=== PATIENT | female | born 1980 | race Caucasian/White ===

== ENCOUNTER 2016-07-02 05:56 | Inpatient (IN) | payer BC ==
[2016-07-02] VITALS (19 sets, daily range): BP systolic 107–152; BP diastolic 70–96; PULSE 61–84; TEMP 97.6–98.3
[~2016-07-02] VITALS: Ht 160 cm; Wt 80.9 kg
[~2016-07-02 05:56] MED LIST: ASCRIPTIN1 TAB PO; COUMADIN5 MG PO; FAMILY PHARMAC0.4 MG PO; IBU600 MG PO; PERCOCET 325 MG1 TA2; PREDNISONE10 MG; PRENATAL VITAMI1 TAB PO; SENOKOT S 50 MG1 TAB PO
[2016-07-02 06:46] LABS: BASO % 0.3 % (0.0-2.0); EOS # 0.3 (0.0-0.7); EOS % 3.1 % (0-4.0); GRAN # 8.4 (1.4-6.5); GRAN % 76.3 % (42.2-75.2); HEMATOCRIT 37.4 % (37.0-47.0); HEMOGLOBIN 12.9 g/dl (12.5-16.0); LYMPH # 1.5 (1.2-3.4); LYMPH % 13.6 % (20.0-51.0); MEAN CELL VOLUME 86 fl (80.0-100.0); MEAN CORPUSCULAR HEMOGLOBIN 30 pg (27.0-31.0); MEAN CORPUSCULAR HGB CONC 35 g/dl (33.0-37.0); MEAN PLATELET VOLUME 10.9 fl (7.4-10.4); MONO # 0.7 (0.1-0.6); MONO % 5.9 % (1.7-9.3); PLATELET COUNT 83 K/mm3 (130-400); RED BLOOD COUNT 4.37 M/mm3 (4.10-5.30); REDCELL DISTRIBUTION WIDTH-CV 13.4 % (11.5-14.5)
[2016-07-02] MEDS ORDERED: LOVENOX 4040 MG/0.4 SQ (07:01)
[2016-07-03 03:32] VITALS: BP 109/68; PULSE 69; TEMP 98
[2016-07-03 07:14] LABS: BASO % 0.2 % (0.0-2.0); EOS # 0.1 (0.0-0.7); EOS % 1.3 % (0-4.0); GRAN # 8.3 (1.4-6.5); GRAN % 81.9 % (42.2-75.2); LYMPH # 1.1 (1.2-3.4); LYMPH % 10.3 % (20.0-51.0); MEAN CELL VOLUME 88 fl (80.0-100.0); MEAN CORPUSCULAR HGB CONC 33 g/dl (33.0-37.0); MEAN PLATELET VOLUME 10.7 fl (7.4-10.4); MONO # 0.6 (0.1-0.6); MONO % 5.7 % (1.7-9.3); PLATELET COUNT 91 K/mm3 (130-400); RED BLOOD COUNT 3.87 M/mm3 (4.10-5.30); REDCELL DISTRIBUTION WIDTH-CV 13.7 % (11.5-14.5); WHITE BLOOD COUNT 10.2 K/mm3 (4.8-10.8)
[2016-07-03 07:16] LABS: HEMATOCRIT 34.1 % (37.0-47.0); HEMOGLOBIN 11.3 g/dl (12.5-16.0); MEAN CORPUSCULAR HEMOGLOBIN 29 pg (27.0-31.0)
[2016-07-03 07:20] VITALS: BP 107/61; PULSE 71; TEMP 97.6
[2016-07-03 16:26] VITALS: BP 100/59; PULSE 80; TEMP 97.9
[2016-07-03 20:15] VITALS: BP 111/76; PULSE 84; TEMP 98.1
[2016-07-04] MEDS ORDERED: IBU600 MG PO (07:46)
[2016-07-04] MEDS ORDERED: PERCOCET 325 MG1 TA2 PO (07:47)
[2016-07-04 08:15] VITALS: BP 124/84; PULSE 84; TEMP 97.4
[2016-07-04 20:15] VITALS: BP 123/83; PULSE 75; TEMP 97.9
[2016-07-05 08:05] VITALS: BP 116/83; PULSE 82; TEMP 97.8
== END 2016-07-05 11:50 | disposition home or self-care (01) | DRG 765 ==
LOC: OB 05:56 → LDR 09:31 → OB 07-05 11:50 → EDSTATUS 07-09 09:00 → LDRO 07-09 09:48
PROVIDERS: Obstetrics & Gynecology
PROC: 10D00Z1 Extraction of Products of Conception, Low, Open Approach (ICD-10-PCS; principal; 2016-07-02)
PROC: 0UB70ZZ Excision of Bilateral Fallopian Tubes, Open Approach (ICD-10-PCS; 2016-07-02)
DX: O34.211 Maternal care for low transverse scar from previous cesarean delivery (principal); O99.12 Other diseases of the blood and blood-forming organs and certain disorders involving the immune mechanism complicating childbirth; D68.59 Other primary thrombophilia; E72.12 Methylenetetrahydrofolate reductase deficiency; N85.8 Other specified noninflammatory disorders of uterus; O09.523 Supervision of elderly multigravida, third trimester; O99.284 Endocrine, nutritional and metabolic diseases complicating childbirth; O75.89 Other specified complications of labor and delivery; Z40.09 Encounter for prophylactic removal of other organ; Z3A.39 39 weeks gestation of pregnancy; Z37.0 Single live birth
CPT/HCPCS: J0330; J0690; J1650; J1885; J2210; J2270; J2405; J2710; J3010; J7120

== ENCOUNTER → 2018-05-13 | Outpatient (CLI) | payer BC ==
[~2018-05-13] MED LIST changes: +LOVENOX 4040 MG/0.4 SQ; +PERCOCET 325 MG1 TA2 PO
== END ==
LOC: COL.VAS 10:00
DX: M79.604 Pain in right leg (principal); M79.605 Pain in left leg; Z86.718 Personal history of other venous thrombosis and embolism